=== PATIENT | male | born 1945 | race Caucasian/White ===

== ENCOUNTER 2022-10-02 16:40 | Emergency (ER) | payer MEDICARE, OTHER, SELFPAY ==
[2022-10-02 16:44] VITALS: BP 163/97; PULSE 74; RESP 20; TEMP 36.6; O2SAT 100; BMI 23.1
--- NOTE | 2022-10-02 16:50 | DI.RAD.S_ITS ---
PROCEDURE: XR CHEST 1V INDICATIONS: Shortness of breath TECHNIQUE: One view of the chest was acquired. COMPARISON: None. FINDINGS: Surgical changes and devices: A right-sided pacer device is seen. A percutaneously placed aortic valve replacement can be seen. Lungs and pleura: Minimal blunting of the costophrenic angles can be seen. No definite pneumothorax can be seen. The lungs are hyperexpanded. No alba infiltrates are seen. Mediastinum: Mediastinal contours appear normal. Heart size is normal. Bones and chest wall: No suspicious bony lesions. Age-appropriate bony degenerative changes are seen. Overlying soft tissues appear unremarkable. IMPRESSION: Small bilateral pleural effusions are seen. The lungs are hyperexpanded. Postoperative and degenerative changes are seen. Dictated by: Miles Hernández M.D. on 10/02/2022 at 16:36 Approved by: Miles Hernández M.D. on 10/02/2022 at 16:36
[2022-10-02 17:36] LABS: Influenza A - CEPHEID Flu A NEGATIVE (NEGATIVE); Influenza B - CEPHEID Flu B NEGATIVE (NEGATIVE); Respiratory Syncytial Virus Negative (Negative)
[2022-10-02 17:39] LABS: COVID-19 CEPHEID 4-PLEX PCR Negative (Negative)
[2022-10-02 17:46] LABS: Add Manual Diff / Slide Review NO; Basophils Absolute Auto 0 /uL (0-100); Basophils Percent Auto 0.7 % (0-2); Eosinophils Absolute Auto 0 /uL (0-450); Eosinophils Percent Auto 0.5 % (2-4); Hematocrit 36.5 % (41-53); Hemoglobin 12.6 g/dL (13.5-17.5); Lymphocytes Absolute Auto 900 /uL (1100-4500); Lymphocytes Percent Auto 18.6 % (25-40); Mean Corpuscular HGB Conc 34.4 % (30-36); Mean Corpuscular Hemoglobin 32.9 PG (26-34); Mean Corpuscular Volume 95.5 fL (80-100); Monocytes Absolute Auto 500 /uL (0-900); Monocytes Percent Auto 11.4 % (3-14); Neutrophils Absolute Auto 3300 /uL (1500-7000); Neutrophils Percent Auto 68.8 % (50-75); Platelet Count 184 X10^3/uL (150-400); Red Blood Cell Count 3.82 X10^6/uL (4.5-5.9); Red Cell Distribution Width 13.8 % (11.6-14.8); White Blood Cell Count 4.8 X10^3/uL (4.5-11.0)
[2022-10-02 17:50] LABS: INR 1.3 (0.9-1.3); Prothrombin Time 15.1 SECONDS (10.1-12.7)
[2022-10-02 17:53] LABS: Lactate (Lactic Acid) 0.8 mmol/L (0.7-2.1)
[2022-10-02 17:55] LABS: Alanine Aminotransferase 59 IU/L (<50); Albumin 3.7 g/dL (3.5-5.0); Albumin Globulin Ratio 1.4 (1.0-2.8); Alkaline Phosphatase 72 U/L (38-126); Aspartate Aminotransferase 40 IU/L (17-59); BUN Creatinine Ratio 28.8 (6-22); Bilirubin Total 0.4 mg/dL (0.2-1.3); Blood Urea Nitrogen 19 mg/dL (9-20); Calcium 8.7 mg/dL (8.4-10.2); Carbon Dioxide 29 mmol/L (22-32); Chloride 98 mmol/L (98-107); Estimated Glomerular Filt Rate > 60 mL/min (>60); Globulin 2.6 g/dL (1.7-4.1); Glucose 108 mg/dL (80-110); HEMOLYSIS < 15 (0-50); Potassium 4.3 mmol/L (3.4-5.1); Sodium 131 mmol/L (137-145); Total Protein 6.3 g/dL (6.3-8.2)
[2022-10-02 18:06] LABS: NT-proBNP (BNP-Adult 18+) 1690 pg/mL (<450); Troponin I < 0.012 ng/mL (0.01-0.034)
--- NOTE | 2022-10-02 20:50 | ED_ITS ---
HPI - General Adult General Chief complaint: Shortness of Breath/Dyspnea Stated complaint: aspiration pnemonia/sent by [facility] Time Seen by Provider: 10/02/22 18:03 Source: patient Mode of arrival: Ambulatory History of Present Illness HPI narrative: Patient is a 77-year-old male. He recently had a pacemaker placement and also a aortic valve replacement. He is on blood thinners three weeks ago he started to shortness of breath. Specifically with exertion. No chest pain. No palpitations. He states that he was having some gurgling sounds. He talked with his primary doctor who stated that he potentially had aspiration pneumonia he was placed on antibiotics for this. He is completed the course of antibiotics. He states that his symptoms are continuing to get worse like. he is having some coughing but no fevers. Continues to have no chest pain or palpitations. No lower extremity swelling. No abdominal pain. He does have a construction engineer that he sees in his scheduled to see them in October. He was told to come to the emergency department for worsening aspiration pneumonia. Related Data Previous Rx's Medication Instructions Recorded furosemide 20 mg tablet (Lasix) 20 mg PO DAILY #14 tabs 10/02/22 Allergies Allergy/AdvReac Type Severity Reaction Status Date / Time No Known Drug Allergies Allergy Verified 10/02/22 16:49 Review of Systems Constitutional Constitutional: Reports system reviewed and no additional complaints, except as documented Cardiovascular Cardiovascular: Reports system reviewed and no additional complaints, except as documented Respiratory Respiratory: Reports system reviewed and no additional complaints, except as documented Musculoskeletal Musculoskeletal: Reports system reviewed and no additional complaints, except as documented Integumentary/Breasts Skin/Breast: Reports system reviewed and no additional complaints, except as documented Hematologic/Lymphatic On Anticoagulants: Yes Patient History Social History Smoking Status: Never smoker Smoking Status: Never smoker alcohol intake frequency: 0-2 drinks per day Substance Use Type: does not use Exam Initial Vital Signs Initial Vital Signs: Vital Signs Temperature 98 F 10/02/22 16:44 Pulse Rate 74 10/02/22 16:44 Respiratory Rate 20 10/02/22 16:44 Blood Pressure 163/97 H 10/02/22 16:44 Pulse Oximetry 100 10/02/22 16:44 Oxygen Delivery Method Room Air 10/02/22 16:44 [facility] Head: normal to inspection and normocephalic Chest Chest: normal inspection of the chest Resp Effort & Inspection: normal respiratory effort Auscultation: clear to auscultation bilaterally Cardio Rate: regular rate Heart Sounds: murmur Skin General: no rashes or lesions noted Neuro General: patient alert, patient awake and moves all extremities Extrem General: normal to inspection and capillary refill normal Course Orders Ordered: ED Orders 10/02/22 17:25 Complete Blood Count AUTO DIFF Stat Comprehensive Metabolic Panel Stat Lactate (Lactic Acid) Stat NT-proBNP (BNP-Adult 18+) Stat Prothrombin Time INR Stat Troponin I Stat Vital Signs Vital signs: Vital Signs - 8 hr 10/02/22 20:58 Pulse Rate 77 Respiratory Rate 16 Blood Pressure 144/76 H Pulse Oximetry 98 Oxygen Delivery Method Room Air Medical Decision Making Medical Records Medical records reviewed: Yes I reviewed the patient's medical records. Lab Data Lab results reviewed: Yes I reviewed the patient's lab results. 10/02/22 17:25 10/02/22 17:25 Labs: Lab Results 10/02/22 10/02/22 10/02/22 Range/Units 16:53 17:25 17:25 WBC 4.8 (4.5-11.0) X10^3/uL RBC 3.82 L (4.5-5.9) X10^6/uL Hgb 12.6 L (13.5-17.5) g/dL Hct 36.5 L (41-53) % MCV 95.5 (80-100) fL MCH 32.9 (26-34) PG MCHC 34.4 (30-36) % RDW 13.8 (11.6-14.8) % Plt Count 184 (150-400) X10^3/uL Neut % (Auto) 68.8 (50-75) % Lymph % (Auto) 18.6 L (25-40) % Cloud % (Auto) 11.4 (3-14) % Eos % (Auto) 0.5 L (2-4) % Baso % (Auto) 0.7 (0-2) % Neut # (Auto) 3300 (3721-2692) /uL Lymph # (Auto) 900 L (6549-6429) /uL Cloud # (Auto) 500 (0-900) /uL Eos # (Auto) 0 (0-450) /uL Baso # (Auto) 0 (0-100) /uL PT 15.1 H (10.1-12.7) SECONDS INR 1.3 (0.9-1.3) Sodium (137-145) mmol/L Potassium (3.4-5.1) mmol/L Chloride (98-107) mmol/L Carbon Dioxide (22-32) mmol/L BUN (9-20) mg/dL Creatinine (0.66-1.25) mg/dL Estimated GFR (>60) mL/min BUN/Creatinine Ratio (6-22) Glucose (80-110) mg/dL Lactate (0.7-2.1) mmol/L Calcium (8.4-10.2) mg/dL Total Bilirubin (0.2-1.3) mg/dL AST (17-59) IU/L ALT (<50) IU/L Alkaline Phosphatase (38-126) U/L Troponin I (0.01-0.034) ng/mL NT-Pro-B Natriuret Pep (<450) pg/mL Total Protein (6.3-8.2) g/dL Albumin (3.5-5.0) g/dL Globulin (1.7-4.1) g/dL Albumin/Globulin Ratio (1.0-2.8) SARS-CoV-2 (PCR) Negative (Negative) Influenza A (RT-PCR) Flu a negative (NEGATIVE) Influenza B (RT-PCR) Flu b negative (NEGATIVE) RSV (PCR) Negative (Negative) 10/02/22 10/02/22 Range/Units 17:25 17:25 WBC (4.5-11.0) X10^3/uL RBC (4.5-5.9) X10^6/uL Hgb (13.5-17.5) g/dL Hct (41-53) % MCV (80-100) fL MCH (26-34) PG MCHC (30-36) % RDW (11.6-14.8) % Plt Count (150-400) X10^3/uL Neut % (Auto) (50-75) % Lymph % (Auto) (25-40) % Cloud % (Auto) (3-14) % Eos % (Auto) (2-4) % Baso % (Auto) (0-2) % Neut # (Auto) (3401-3848) /uL Lymph # (Auto) (2819-0688) /uL Cloud # (Auto) (0-900) /uL Eos # (Auto) (0-450) /uL Baso # (Auto) (0-100) /uL PT (10.1-12.7) SECONDS INR (0.9-1.3) Sodium 131 L (137-145) mmol/L Potassium 4.3 (3.4-5.1) mmol/L Chloride 98 (98-107) mmol/L Carbon Dioxide 29 (22-32) mmol/L BUN 19 (9-20) mg/dL Creatinine 0.66 (0.66-1.25) mg/dL Estimated GFR > 60 (>60) mL/min BUN/Creatinine Ratio 28.8 H (6-22) Glucose 108 (80-110) mg/dL Lactate 0.8 (0.7-2.1) mmol/L Calcium 8.7 (8.4-10.2) mg/dL Total Bilirubin 0.4 (0.2-1.3) mg/dL AST 40 (17-59) IU/L ALT 59 H (<50) IU/L Alkaline Phosphatase 72 (38-126) U/L Troponin I < 0.012 (0.01-0.034) ng/mL NT-Pro-B Natriuret Pep 1690 H (<450) pg/mL Total Protein 6.3 (6.3-8.2) g/dL Albumin 3.7 (3.5-5.0) g/dL Globulin 2.6 (1.7-4.1) g/dL Albumin/Globulin Ratio 1.4 (1.0-2.8) SARS-CoV-2 (PCR) (Negative) Influenza A (RT-PCR) (NEGATIVE) Influenza B (RT-PCR) (NEGATIVE) RSV (PCR) (Negative) Imaging Data Chest x-ray: Radiologist's Impression: PROCEDURE:? XR CHEST 1V ? INDICATIONS:? Shortness of breath ? TECHNIQUE:? One view of the chest was acquired.? ? COMPARISON:? None. ? FINDINGS:? ? Surgical changes and devices:? A right-sided pacer device is seen. A percutaneously placed aortic valve replacement can be seen.? ? Lungs and pleura:? Minimal blunting of the costophrenic angles can be seen.? No definite pneumothorax can be seen.? The lungs are hyperexpanded.? No alba infiltrates are seen. ? Mediastinum:? Mediastinal contours appear normal.? Heart size is normal.? ? Bones and chest wall:? No suspicious bony lesions.? Age-appropriate bony degenerative changes are seen.? Overlying soft tissues appear unremarkable.? ? ? IMPRESSION:? Small bilateral pleural effusions are seen. ? The lungs are hyperexpanded. ? Postoperative and degenerative changes are seen.? MDM Narrative Medical decision making narrative: Clinically the patient does not have pneumonia. His chest x-ray shows no signs of pneumonia. He does not have leukocytosis. his lungs are clear. He does not have a fever. He has completed a course of antibiotics that would be appropriate for treatment of aspiration pneumonia and potentially any other com munity-acquired pneumonia. He clinically is not in heart failure. He does not have any lower extremity swelling although his BNP is slightly elevated today. Patient is not hypoxic. Not tachypneic. No chest pain with a negative troponin. Had a long discussion with the patient regarding his symptoms. I did inform him that my suspicion for pneumonia was very low and I had a higher concern that potentially his dyspnea on exertion is related to his recent aortic valve replacement. The plan is going to be is to put him on Lasix for the next couple days to see if this helps his symptoms. He should contact his construction engineer for follow-up to discuss an echocardiogram. no indication for admission to the hospital today. No indication for emergent transfer based on his exam in his vital signs. Symptoms been off for the past 3 weeks. He was given return precautions. He expressed understanding and agreement. Discharge Plan Departure Patient Disposition: Home Clinical Impression: Shortness of Breath Instructions: DI for Shortness of Breath Activity Restrictions/Additional Instructions: I do recommend that you continue to take all of your medications as directed. We are going to start you on a medicine called Lasix/furosemide to see if this helps your symptoms although you are going to need follow-up with your construction engineer. Return to the emergency department for new or worsening symptoms. Prescriptions: New furosemide [Lasix] 20 mg tablet 20 mg PO DAILY Qty: 14 0RF Referrals: Sammy Tripathi MD [Primary Care Provider] - Stand Alone Forms: Patient Portal/API
[2022-10-02 20:58] VITALS: BP 144/76; PULSE 77; RESP 16; O2SAT 98
== END 2022-10-02 21:10 | disposition home or self-care (01) ==
PROVIDERS: Emergency Medicine; Emergency Provider Emergency Medicine; PCP Family Medicine
DX: R06.02 Shortness of breath (principal); Z95.0 Presence of cardiac pacemaker; Z79.01 Long term (current) use of anticoagulants; Z20.822 Contact with and (suspected) exposure to COVID-19
CPT/HCPCS: 0241U; 36415; 71045; 80053; 83605; 83880; 84484; 85025; 85610; 93005; 93010; 99283; 99284